=== PATIENT | male | born 1965 | race American Indian/Alaskan Native ===

== ENCOUNTER 2018-08-06 22:26 | Emergency (ER) | payer SELFPAY ==
[2018-08-06 22:32] VITALS: BMI 29.7
[2018-08-06 23:00] VITALS: BP 130/64; PULSE 80; RESP 18; TEMP 98.1; O2SAT 100
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
[2018-08-07] MEDS ORDERED: Oxycodone/Acetaminophen 5/325 mg Tab PO STA (01:31)
--- NOTE | 2018-08-07 08:57 | US ---
HISTORY: Leg pain and swelling. Evaluate for DVT PHYSICIAN(S): Prince Torres MD. TECHNIQUE: Duplex sonography and color-flow Doppler with graded compression were used to evaluate the deep venous systems of both lower extremities. FINDINGS: The visualized deep venous systems of both lower extremities are sonographically normal and compressible. Normal wave forms and augmentation are seen. There is no sonographic evidence for deep venous thrombosis in the visualized segments of both lower extremities. IMPRESSION: No sonographic evidence for deep venous thrombosis in the visualized segments of both lower extremities.
--- NOTE | 2018-08-07 13:36 | RAD ---
Date of service: 08/07/2018 PROCEDURE: Radiographs of the Lumbar Spine. HISTORY: back pain COMPARISON: No prior. FINDINGS: BONES: Normal alignment. No listhesis. No fracture. DISC SPACES: Unremarkable. OTHER FINDINGS: None. IMPRESSION: Unremarkable radiographs of the lumbar spine.
--- NOTE | 2018-08-07 14:31 | RAD ---
Date of service: 08/06/2018 PROCEDURE: LEFT HIP WITH PELVIS RADIOGRAPHS HISTORY: hip pain COMPARISON: NONE AVAILABLE. TECHNIQUE: AP and frog-leg lateral views of the left hip joint have been submitted for interpretation as well as a frontal view of the pelvis. FINDINGS: No acute fracture of the left hip is appreciated or the pelvic ring pubic symphysis intact including pubic bony anatomy. Advanced late stage osteoarthritis is appreciated at the left hip joint including expansion of the acetabulum and osteonecrosis of the weight-bearing portion of the left femoral head which appears significantly flattened. Prominent osteophytes are appreciated both medially and superolaterally at the left hip joint with moderate subchondral cyst formation also present. Gross joint space narrowing is identified. Lesser similar change appears at the right hip joint was still maintains normal curvature of the right femoral head though prominent osteophyte development is seen laterally. Limited bilateral sacroiliac joint degenerative change are identified with the iliac bones and sacrum otherwise unremarkable appearing. Local soft tissues reflect phlebolith like soft tissue calcifications inferiorly in the pelvis. IMPRESSION: End-stage osteoarthritis left hip joint without fracture throughout the pelvic ring or left hip joint evident. Moderate to severe degenerative changes right hip joint. Limited bilateral sacroiliac joint degenerative change.
== END 2018-08-07 02:02 | disposition home or self-care (01) ==
LOC: ED 22:26
DX: M54.5 Low back pain (principal); M25.552 Pain in left hip; M87.9 Osteonecrosis, unspecified; Z87.891 Personal history of nicotine dependence
CPT/HCPCS: 72110; 73502; 93970; 96372; 99283; J1885